=== PATIENT | male | born 1985 | race Caucasian/White ===

== ENCOUNTER 2020-11-18 06:48 | Emergency (ER) | payer OTHER ==
[2020-11-18] MEDS ORDERED: Tetracaine HCl/PF 0.5% 4 ML Bottle EYERT ONE (07:16)
[2020-11-18] MEDS ORDERED: Fluorescein 1 MG Ophth Strip EYERT ONE (07:17)
[2020-11-18] MEDS ORDERED: Gentamicin 0.3% Ophth Soln 5 ML Bottle EYERT ONE (07:17)
--- NOTE | 2020-11-18 07:21 | EDM.PDOC ---
ED HPI GENERAL MEDICAL PROBLEM - General Chief Complaint: Eye Problems Stated Complaint: [id number] SOMETHING IN RIGHT EYE Time Seen by Provider: 11/18/20 07:18 Source of Information: Reports: Patient, RN, RN Notes Reviewed History Limitations: Reports: No Limitations - History of Present Illness INITIAL COMMENTS - FREE TEXT/NARRATIVE: Pt presents to ER by POV with c/o right eye irritation and foreign body sensation since yesterday. On 17 November 2020 pt was working on active duty at [place], [place] when the wind blew dirt or concrete debris into his right eye. Denies visual change. Tetanus vaccine is up to date. Onset: Sudden Onset Date: 11/17/20 Duration: Constant Location: Reports: Other (Right eye) Quality: Reports: Ache Severity: Moderate Improves with: Reports: None Worsens with: Reports: None Associated Symptoms: Reports: No Other Symptoms - Related Data Allergies Allergy/AdvReac Type Severity Reaction Status Date / Time No Known Allergies Allergy Verified 11/18/20 06:55 Home Meds: Home Meds . [No Known Home Meds] 11/18/20 [History] Past Medical History - Past Health History Medical/Surgical History: Denies Medical/Surgical History HEENT History: Reports: None Cardiovascular History: Reports: None Respiratory History: Reports: None Gastrointestinal History: Reports: None Genitourinary History: Reports: None Musculoskeletal History: Reports: None Neurological History: Reports: None Psychiatric History: Reports: None Endocrine/Metabolic History: Reports: None Hematologic History: Reports: None Immunologic History: Reports: None Oncologic (Cancer) History: Reports: None Dermatologic History: Reports: None - Infectious Disease History Infectious Disease History: Reports: None - Past Surgical History Head Surgeries/Procedures: Reports: None Social & Family History - Family History Family Medical History: No Pertinent Family History - Tobacco Use Tobacco Use Status *Q: Never Tobacco User Second Hand Smoke Exposure: No - Caffeine Use Caffeine Use: Reports: None - Recreational Drug Use Recreational Drug Use: No - Living Situation & Occupation Occupation: Employed ED ROS GENERAL - Review of Systems Review Of Systems: Comprehensive ROS is negative, except as noted in HPI. ED EXAM GENERAL W FULL EYE - Physical Exam Exam: See Below Exam Limited By: No Limitations General Appearance: Alert, WD/WN, No Apparent Distress Eye Exam: Right Eye: Corneal Abrasion, Left Eye: Normal Inspection, Bilateral Eye: EOMI, PERRL Eyelids: Right: Lid Everted for Exam, Bilateral: Normal Appearance Conjunctiva & Sclera: Right: Injected, Left: Normal Appearance Cornea Exam: Right: Corneal Abrasion, Examined with Flourescein, Left: Normal Appearance Extraocular Movements: Bilateral: Intact Pupils: Normal Accommodation Pupillary Size: Bilateral: 3 mm Pupillary Reaction: Bilateral: Brisk Throat/Mouth: Normal Voice, No Airway Compromise Head: Atraumatic, Normocephalic Respiratory/Chest: No Respiratory Distress Neurological: Alert, Oriented, No Motor/Sensory Deficits Psychiatric: Normal Affect, Normal Mood Skin Exam: Warm, Dry, Intact, Normal Color, No Rash ED EYE w/ Add Procedure - Eye Procedure Alcaine Drops Administered: Yes Eye FB Removal: no Removal w/ Cotton Swab, no Removal w/ Needle, no Other Antibiotic Oinment/Drps Admin: Right Eye Progress: Corneal abrasion, no foreign body seen. Course - Vital Signs Last Recorded V/S: Last Vital Signs Temp 97.8 F 11/18/20 07:01 Pulse 95 11/18/20 07:01 Resp 18 11/18/20 07:01 BP 120/83 11/18/20 07:01 Pulse Ox 96 11/18/20 07:01 - Orders/Labs/Meds Meds: Medications Discontinued Medications Generic Name Dose Route Start Last Admin Trade Name Michael PRN Reason Stop Dose Admin Fluorescein Sodium 1 mg 11/18/20 07:17 11/18/20 07:25 Fluorescein 1 Mg Ophth Strip EYERT 11/18/20 07:18 1 mg ONETIME ONE Administration Gentamicin Sulfate 1 ml 11/18/20 07:17 11/18/20 07:25 Gentamicin 0.3% Ophth Soln 5 Ml Bottle EYERT 11/18/20 07:18 1 ml ONETIME ONE Administration Tetracaine HCl 1 ml 11/18/20 07:16 11/18/20 07:25 Tetracaine Hcl/Pf 0.5% 4 Ml Bottle EYERT 11/18/20 07:17 1 ml ONETIME ONE Administration Departure - Departure Time of Disposition: 07:29 Disposition: Home, Self-Care 01 Condition: Good Clinical Impression: Corneal abrasion Qualifiers: Encounter type: initial encounter Laterality: right Qualified Code(s): S05.01XA - Injury of conjunctiva and corneal abrasion without foreign body, right eye, initial encounter - Discharge Information *PRESCRIPTION DRUG MONITORING PROGRAM REVIEWED*: No *COPY OF PRESCRIPTION DRUG MONITORING REPORT IN PATIENT MARA: No Instructions: Corneal Abrasion Forms: ED Department Discharge Additional Instructions: Gentamicin Ophthalmic Solution 0.3%: One drop into right eye four times a day for five days. Tetracaine Ophthalmic Solution: One drop into right eye every 4 hours as needed for pain for up to 24 hours. Use over the counter Ibuprofen (Motrin/Advil) 200mg: Take 4 tablets by mouth every 8 hours as needed for pain. Take with food. Do not exceed 12 tablets per day. Follow up in eye clinic in 3 days for recheck. Sepsis Event Note (ED) - Evaluation Sepsis Screening Result: No Definite Risk - Focused Exam Vital Signs: Vital Signs Temp Pulse Resp BP Pulse Ox 11/18/20 07:01 97.8 F 95 18 120/83 96
== END 2020-11-18 07:37 | disposition home or self-care (01) ==
LOC: DL.ED 06:48
DX: S05.01XA Injury of conjunctiva and corneal abrasion without foreign body, right eye, initial encounter (principal); W22.8XXA Striking against or struck by other objects, initial encounter
CPT/HCPCS: 99283; A9270-GY